=== PATIENT | female | born 1965 | race Caucasian/White ===

== ENCOUNTER 2018-06-13 20:37 | Emergency (ER) | payer OTHER ==
--- NOTE | 2018-06-13 21:24 | UC ---
Skin Complaint HPI - HPI Summary HPI Summary: 53 yo female presents with rash. She tells me that she developed diffuse hives around february of this year. She did not have any change in environment/soaps/ clothes/detergents. No SOB or difficulty breathing. She went to [facility] ED and was prescribed prednisone for 2 weeks. This resolved her hives and itching, but a few days after finishing the prednisone her rash returned. She has been dealing with this intermittently since that time. Today she developed two large streaks of hives on her back - prompting her visit to . Denies fever, chills, SOB, difficulty breathing, chest pain, abdominal pain, n/v. - History of Current Complaint Chief Complaint: Ras Time Seen by Provider: 06/13/18 21:23 Stated Complaint: SKIN CONCERN Hx Obtained From: Patient Onset/Duration: Gradual Onset Current Severity: None Pain Intensity: 0 - Allergy/Home Medications Allergies/Adverse Reactions: Allergies Allergy/AdvReac Type Severity Reaction Status Date / Time aspirin AdvReac Abdominal Verified 06/13/18 21:10 Pain Review of Systems Constitutional: Negative Skin: Rash Eyes: Negative ENT: Negative Respiratory: Negative Cardiovascular: Negative Gastrointestinal: Negative Genitourinary: Negative Neurovascular: Negative Neurological: Negative Psychological: Negative All Other Systems Reviewed And Are Negative: Yes PMH/Surg Hx/FS Hx/Imm Hx - Additional Past Medical History Additional PMH: Seasonal allergies - Surgical History Surgical History: Yes Surgery Procedure, Year, and Place: C-SECT X 2. CYSTECTOMY/OOPHORECTOMY. OOPHORECTOMY/SALPINGECTOMY. APPY. EAR TUBES B/L X 6. cochlear implant 11/2017 - Family History Known Family History: Positive: None - Social History Occupation: Employed Full-time Lives: With Family Alcohol Use: Rare Substance Use Type: None Smoking Status (MU): Never Smoked Tobacco Physical Exam - Summary Physical Exam Summary: GENERAL: NAD. WDWN. No pain distress. SKIN: Diffuse hives worse on legs. Back: there are TWO 18-20.0cm long and 2.0cm streaks of raised hives in linear patterns. No streaking, bleeding, or drainage. NECK: Supple. Nontender. No lymphadenopathy. CHEST: No accessory muscle use. Breathing comfortably and in no distress. CV: Pulses intact. Cap refill <2seconds NEURO: Alert. PSYCH: Age appropriate behavior. Triage Information Reviewed: Yes Vital Signs: Initial Vital Signs Temp 97.1 F 06/13/18 21:02 Pulse 79 06/13/18 21:02 Resp 17 06/13/18 21:02 BP 148/105 06/13/18 21:02 Pulse Ox 99 06/13/18 21:02 Vital Signs Reviewed: Yes Course/Dx - Course Course Of Treatment: Hives on back are very suspicious for a contact type pattern despite that she declines new contacts. I am unsure what is causing her hives, but will start her on prednisone as this worked in the past. She has an appt with her PCP in 3 days for follow up. - Diagnoses Provider Diagnoses: urticaria Discharge - Sign-Out/Discharge Documenting (check all that apply): Patient Departure All imaging exams completed and their final reports reviewed: No Studies - Discharge Plan Condition: Stable Disposition: HOME Prescriptions: predniSONE TAB* [Deltasone 20 MG TAB*] 40 mg PO BID #10 tab Triamcinolone 0.1% CREAM(NF) [Kenalog Cream 0.1%(NF)] 1 applic TOPICAL BID #1 tube Patient Education Materials: Urticaria (ED), General Allergic Reaction (ED) Referrals: Esperanza Lozano MD [Primary Care Provider] - Additional Instructions: If you develop a fever, shortness of breath, chest pain, new or worsening symptoms - please call your PCP or go to the ED. Your blood pressure was high at todays visit. Please see your primary provider within 4 weeks for recheck and re-evaluation. - Billing Disposition and Condition Condition: STABLE Disposition: Home
[2018-06-13] MEDS ORDERED: Dexamethasone TAB* 4 MG PO ONE (21:33)
[2018-06-13 21:47] VITALS: BP 131/89
== END 2018-06-13 21:47 | disposition home or self-care (01) ==
LOC: UCCORT 20:37
DX: L50.9 Urticaria, unspecified (principal); Z88.6 Allergy status to analgesic agent
CPT/HCPCS: 99212; G0463; J8540